=== PATIENT | female | born 1955 | race Caucasian/White ===

== ENCOUNTER → 2016-10-30 | Outpatient (CLI) | payer MEDICAID | LOC: FIMAGING 12:56 | DX: Z12.31 Encounter for screening mammogram for malignant neoplasm of breast (principal) | CPT/HCPCS: G0202 ==

== ENCOUNTER → 2016-11-13 | Outpatient (CLI) | payer MEDICAID | LOC: BMCIMAGING 09:29 | PROVIDERS: ATTEND Orthopaedic Surgery | DX: M25.561 Pain in right knee (principal); M17.11 Unilateral primary osteoarthritis, right knee; M25.761 Osteophyte, right knee ==

== ENCOUNTER → 2017-01-14 | Outpatient (CLI) | payer MEDICAID | LOC: FIMAGING 13:41 | PROVIDERS: ATTEND Orthopaedic Surgery | DX: Z01.818 Encounter for other preprocedural examination (principal); M17.11 Unilateral primary osteoarthritis, right knee ==

== ENCOUNTER 2017-01-20 06:01 | Inpatient (IN) | payer MEDICAID ==
[2017-01-01 16:57] LABS: % IMMATURE GRANULYOCYTES 0.2 % (0.0-1.1); ABSOLUTE IMMATURE GRANULOCYTES 0.01 10^3/uL (0.00-0.10); ADD DIFF? NO; ADD MORPH? NO; ADD SCAN? NO; ATYPICAL LYMPHOCYTE FLAG 0 (0-99); FRAGMENT RBC FLAG 0 (0-99); HEMOGLOBIN 15.2 g/dL (12.6-16.3); LEFT SHIFT FLG 0 (0-99); LIPEMIA HEMOLYSIS FLAG 90 (0-99); MEAN CELL HEMOGLOBIN 28.7 pg (27.9-34.1); MEAN CELL HEMOGLOBIN CONCENTR. 34.5 g/dL (32.4-36.7); MEAN CELL VOLUME 83.2 fL (81.5-99.8); MEAN PLATELET VOLUME 9.5 fL (8.7-11.7); PLATELET CLUMPS FLAG 0 (0-99); PLATELET COUNT 295 10^3/uL (150-400); RED BLOOD CELL COUNT 5.29 10^6/uL (4.18-5.33)
[2017-01-13] MEDS: HYDROmorphONE/DILAUDID 1 MG/ML SYR IVP PRN (10:13)
[~2017-01-20 06:01] MED LIST: ACETAMINOPHEN 325 MG TAB PO ONE; DEXAMETHASONE 4 MG/ML VIAL IVP ONE; FAMOTIDINE 20 MG TAB PO ONE
[2017-01-20] MEDS ORDERED: LR 1,000 ML IV ONE (06:07)
[2017-01-20] MEDS ORDERED: LIDOCAINE 1% 2 ML INJ ID PRN (06:07)
--- NOTE | 2017-01-20 06:29 | PDHPUP ---
History & Physical Update H&P update statement: This history and physical update is based on an assessment of the patient which was completed after admission or registration (within 24 hours), but prior to the surgery/procedure.
[2017-01-20] MEDS ORDERED: THROMBIN (BOVINE) 5,000 UNIT VIAL TP ONE (06:42)
[2017-01-20] MEDS ORDERED: ceFAZolin 1 GM/5 ML SYR ONE (06:43)
[2017-01-20] MEDS ORDERED: CALCIUM CHLORIDE 1 GM/10 ML INJ ONE ×2 (06:43→07:36)
--- NOTE | 2017-01-20 07:03 | PDANEPAE ---
ANE History of Present Illness R total knee replacement ANE Past Medical History - Cardiovascular History Hx Hypertension: No Hx Arrhythmias: No Hx Chest Pain: No Hx Coronary Artery / Peripheral Vascular Disease: No Hx CHF / Valvular Disease: No Hx Palpitations: No - Pulmonary History Hx COPD: No Hx Asthma/Reactive Airway Disease: No Hx Recent Upper Respiratory Infection: No Hx Oxygen in Use at Home: No Hx Sleep Apnea: Yes Sleep Apnea Screening Result - Last Documented: Positive Pulmonary History Comment: WHEEZING W/URI & ALLERGIES - ENVIRONMENTAL & CATS - Neurologic History Hx Cerebrovascular Accident: No Hx Seizures: No Hx Dementia: No - Endocrine History Hx Diabetes: No Endocrine History Comment: HYPOTHYROID - Renal History Hx Renal Disorders: No - Liver History Hx Hepatic Disorders: Yes Hepatic History Comment: CHOLECYSTECTOMY - Neurological & Psychiatric Hx Hx Neurological and Psychiatric Disorders: Yes Neurological / Psychiatric History Comment: DEPRESSION - Cancer History Hx Cancer: Yes Cancer History Comment: BASAL CELL LESIONS REMOVED - Congenital Disorder History Hx Congenital Disorders: No - GI History Hx Gastrointestinal Disorders: Yes Gastrointestinal History Comment: ACID REFLUX. HIATAL HERNIA - Other Health History Other Health History: ALLERGIC DERMATITIS - Chronic Pain History Chronic Pain: Yes (LALITHA KNEE PAIN) - Surgical History Prior Surgeries: APPENDECTOMY. URETHRAL DILATION. TUMOR LALITHA BREAST BENIGN. CHOLECYSTECTOMY. TONSILLECTOMY &ADENOIDECTOMY. KNEE LALITHA SCOPES ANE Review of Systems - Exercise capacity METS (RN): 4 METS ANE Patient History - Allergies Allergies/Adverse Reactions: cephalexin monohydrate [From Keflex] Allergy (Verified 05/26/09 15:58) doxycycline [Doxycycline] Allergy (Verified 05/26/09 15:59) - Home Medications Home Medications: Cyclobenzaprine [Flexeril 10 MG (*)] 10 mg PO DAILY PRN 12/20/16 [Last Taken 04/22] Diclofenac Sodium 1% [Voltaren Gel (*)] 1 isaac TP DAILY PRN 12/20/16 [Last Taken 01/13/17] Fluticasone Nasal [Flonase Nasal [place] (RX)] 1 sprays NASAL DAILY PRN 12/20/16 [ Last Taken 01/19/17] Herbals/Supplements -Info Only 1 ea PO DAILY 12/20/16 [Last Taken 01/13/17] Ibuprofen [Advil] 800 mg PO BID PRN 12/20/16 [Last Taken 01/13/17] LORazepam [Ativan (*)] 1 mg PO HS PRN 12/20/16 [Last Taken 01/13/17] Ospemifene [Osphena] 60 mg PO DAILY PRN 12/20/16 [Last Taken 01/13/17] Ranitidine HCl 150 mg PO BID 12/20/16 [Last Taken 01/20/17 00:00] - NPO status NPO Since - Liquids (Date): 01/19/17 NPO Since - Liquids (Time): 20:00 NPO Since - Solids (Date): 01/19/17 NPO Since - Solids (Time): 20:00 - Anes Hx Anes Hx: post operative nausea (This happened last in the s) - Smoking Hx Smoking Status: Never smoked Marijuana use: Yes - Family Anes Hx Family Hx Anesthesia Complications: NEG ANE Labs/Vital Signs - Labs Result Diagrams: 01/01/17 16:40 - Vital Signs Blood Pressure: 160/95 Heart Rate: 94 Respiratory Rate: 20 O2 Sat (%): 94 Height: 157.48 cm Weight: 104.326 kg ANE Physical Exam - Airway Neck exam: FROM Mallampati Score: Class 3 (short TMD) Mouth exam: normal dental/mouth exam - Pulmonary Pulmonary: clear to auscultation - Cardiovascular Cardiovascular: regular rate and rhythym - ASA Status ASA Status: III ANE Anesthesia Plan Anesthesia Plan: general endotracheal anesthesia Regional Anesthesia: single shot NB (Adductor canal block, possible inability to perform discussed)
[2017-01-20] MEDS ORDERED: MIDAZOLAM 2 MG/2 ML VIAL IVP ONE (07:05)
[2017-01-20] MEDS ORDERED: PROPOFOL/EMULSION 500 MG/50 ML BOTTLE IV ONE ×2 (07:09→08:27)
[2017-01-20] MEDS ORDERED: fentaNYL 100 MCG/2 ML INJ ONE ×6 (07:12→10:15)
[2017-01-20] MEDS ORDERED: DEXAMETHASONE 4 MG/ML VIAL ONE ×2 (07:13)
[2017-01-20] MEDS ORDERED: ROCURONIUM 50 MG/5 ML VIAL ONE ×2 (07:13→08:20)
[2017-01-20] MEDS ORDERED: KETAMINE 100 MG/10 ML SYR ONE (07:16)
[2017-01-20] MEDS ORDERED: RANITIDINE 50 MG/2 ML VIAL ONE (07:56)
[2017-01-20] MEDS ORDERED: VANCOMYCIN 1.5 GM in D5W 250 ML IV ONE (08:00)
[2017-01-20] MEDS ORDERED: VANCOMYCIN PHARMACY TO DOSE MISC ONE (08:00)
[2017-01-20] MEDS ORDERED: TRANEXAMIC ACID 1,000 MG in NS 100 ML IV ONE (08:00)
[2017-01-20] MEDS ORDERED: LIDOCAINE 1% 5 ML, BUPIVACAINE 0.5% 5 ML, morphINE PF 5 MG in SYRINGE 0 ML IU ONE (08:00)
[2017-01-20] MEDS ORDERED: ROPI/epiNEPH/KETOROLAC/morphINE JOINT COCKTAIL IU ONE (08:00)
[2017-01-20] MEDS ORDERED: ENALAPRILAT DIHYDRATE 1.25 MG/ML VIAL ONE ×2 (08:13)
[2017-01-20] MEDS ORDERED: clonIDINE 1 MG/10 ML VIAL EP ONE (08:20)
[2017-01-20] MEDS ORDERED: ROPIVACAINE HCL 150 MG/30 ML INJ ONE (08:20)
[2017-01-20] MEDS ORDERED: ONDANSETRON 4 MG/2 ML VIAL ONE (08:51)
[2017-01-20] MEDS ORDERED: LIDOCAINE 2% 5 ML SDV ONE (08:59)
[2017-01-20] MEDS ORDERED: GLYCOPYRROLATE 0.2 MG/1 ML VIAL ONE (09:02)
[2017-01-20] MEDS ORDERED: NEOSTIGMINE METHYLSULFATE 5 MG/5 ML SYR ONE (09:02)
[2017-01-20] MEDS ORDERED: PROMETHAZINE HCL 25 MG SUPPR PR PRN (09:13)
[2017-01-20] MEDS ORDERED: CYCLOBENZAPRINE 10 MG TAB PO PRN (09:13)
[2017-01-20] MEDS ORDERED: LACTULOSE 20 GM/30 ML UDCUP PO PRN (09:13)
[2017-01-20] MEDS ORDERED: DIAZEPAM 5 MG TAB PO PRN (09:13)
[2017-01-20] MEDS ORDERED: ONDANSETRON 4 MG/2 ML VIAL IVP PRN (09:13)
[2017-01-20] MEDS ORDERED: POLYETHYLENE GLYCOL 3350 17 GM PKT PO PRN (09:13)
[2017-01-20] MEDS ORDERED: BISACODYL 10 MG SUPP PR PRN (09:13)
[2017-01-20] MEDS ORDERED: MAGNESIUM HYDROXIDE 30 ML UDCUP PO PRN (09:13)
[2017-01-20] MEDS ORDERED: DIPHENOXYLATE/ATROPINE LOMOTIL 1 TAB PO PRN (09:13)
[2017-01-20] MEDS ORDERED: METOCLOPRAMIDE 10 MG/2 ML VIAL IVP PRN (09:13)
[2017-01-20] MEDS ORDERED: ONDANSETRON DISINTEGRATING 4 MG TAB PO PRN (09:13)
[2017-01-20] MEDS ORDERED: diphenhydrAMINE 25 MG CAP PO PRN (09:13)
[2017-01-20] MEDS ORDERED: PROMETHAZINE HCL 25 MG/ML INJ IVP PRN (09:13)
[2017-01-20] MEDS ORDERED: PHARMACY PAIN CONSULT 1 EA MISC PRN (09:13)
[2017-01-20] MEDS ORDERED: TEMAZEPAM 15 MG CAP PO PRN (09:13)
[2017-01-20] MEDS ORDERED: traMADol 50 MG TAB PO PRN (09:13)
[2017-01-20] MEDS ORDERED: LORazepam 1 MG TAB PO PRN (09:14)
[2017-01-20] MEDS ORDERED: Ospemifene [Osphena] 60 MG PO PRN (09:14)
[2017-01-20] MEDS ORDERED: LR 1,000 ML IV SCH (09:30)
[2017-01-20] MEDS: fentaNYL 100 MCG/2 ML INJ IVP PRN ×4 (09:55→11:08)
[2017-01-20] MEDS ORDERED: NALOXONE HCL 0.4 MG/ML INJ IVP PRN (09:59)
--- NOTE | 2017-01-20 10:02 | POSTANESTH ---
Post Anesthetic Evaluation Cardiovascular Status: Similar to Pre-Op Cond Respiratory Status: Similar to Pre-op Cond. Level of Consciousness/Mental Status: Can Participate in Eval Pain Control: Inadeq, Add Tx Required Nausea/Vomiting Control: Adequate, Prn Tx Ordered Complications Possibly Related to Anesthesia: None Noted
[2017-01-20] MEDS: HYDROmorphONE/DILAUDID 1 MG/ML SYR IVP PRN ×5 (10:03→11:15)
[2017-01-20] MEDS ORDERED: HYDROmorphONE/DILAUDID 1 MG/ML SYR ONE (10:27)
[2017-01-20] MEDS: ACETAMINOPHEN 325 MG TAB PO SCH ×3 (12:49→23:38)
[2017-01-20] MEDS: oxyCODONE IR 5 MG TAB PO PRN ×3 (12:49→23:38)
[2017-01-20] MEDS: ASPIRIN 325 MG TAB PO SCH (20:09)
[2017-01-20] MEDS: FAMOTIDINE 20 MG TAB PO SCH (20:09)
[2017-01-20] MEDS: SENNOSIDES/DOCUSATE SODIUM TAB PO SCH (20:09)
[2017-01-20] MEDS ORDERED: NON-FORMULARY NEW DRUG (Ranitidine Hcl [Ranitidine Hcl] 150 MG) PO SCH (21:00)
[2017-01-21 04:47] VITALS: RESP 16
[2017-01-21 05:17] LABS: HEMOGLOBIN 11.7 g/dL (12.6-16.3)
[2017-01-21] MEDS: ACETAMINOPHEN 325 MG TAB PO SCH ×2 (05:22→12:26)
[2017-01-21] MEDS: oxyCODONE IR 5 MG TAB PO PRN ×2 (07:05→12:26)
--- NOTE | 2017-01-21 07:18 | PDIAF ---
- Diagnosis Diagnosis: right knee djd Code Status: Full Code - Medication Management Discharge Medications: Medications to Continue on Transfer Cyclobenzaprine [Flexeril 10 MG (*)] 10 mg PO DAILY PRN 12/20/16 [Last Taken 04/22] Diclofenac Sodium 1% [Voltaren Gel (*)] 1 isaac TP DAILY PRN 12/20/16 [Last Taken 01/13/17] Fluticasone Nasal [Flonase Nasal [place]] 1 sprays NASAL DAILY PRN 12/20/16 [Last Taken 01/19/17] Herbals/Supplements -Info Only 1 ea PO DAILY 12/20/16 [Last Taken 01/13/17] Ibuprofen [Advil] 800 mg PO BID PRN 12/20/16 [Last Taken 01/13/17] LORazepam [Ativan (*)] 1 mg PO HS PRN 12/20/16 [Last Taken 01/13/17] Ospemifene [Osphena] 60 mg PO DAILY PRN 12/20/16 [Last Taken 01/13/17] Ranitidine HCl 150 mg PO BID 12/20/16 [Last Taken 01/20/17 00:00] Aspirin [Aspirin 325 mg (*)] 325 mg PO DAILY #0 tab 01/21/17 [Last Taken Unknown ] oxyCODONE IR [Oxycodone Ir (*)] 5 - 10 mg PO Q3HRS PRN #90 tab 01/21/17 [Last Taken Unknown] Discharge Medications: Refer to the Discharge Home Medication list for PRN reason. - Orders Services needed: Physical Therapy Diet Recommendation: no restrictions on diet Diet Texture: Regular Texture Diet Activity/Weight Bearing Restrictions: wbat. rom as tolerated. daily dressing changes. may shower without bandage, no soaking or immersion. aspirin 325 mg po daily. f/u at two weeks. seek attn for increasing pain, cp, sob, other focal complaints - Follow Up Care Current Providers and Referrals: Ramona Green MD [Primary Care Provider] -
[2017-01-21 08:06] VITALS: BP 122/56; PULSE 69; TEMP 98.5; O2SAT 96
[2017-01-21] MEDS: FAMOTIDINE 20 MG TAB PO SCH (08:58)
[2017-01-21] MEDS: SENNOSIDES/DOCUSATE SODIUM TAB PO SCH (08:58)
[2017-01-21] MEDS: ASPIRIN 325 MG TAB PO SCH (08:58)
--- NOTE | 2017-01-21 16:52 | GDS ---
[f rep st] DISCHARGE SUMMARY ADMIT DIAGNOSIS: Right knee degenerative joint disease. DISCHARGE DIAGNOSIS: Right knee degenerative joint disease. PROCEDURE: Right total knee arthroplasty. OPERATIVE INDICATIONS: The patient is a 61-year-old woman with end-stage arthritis to her right kne e. Clinical and radiographic features are consistent with this. She has failed all attempts at con servative management. I have, therefore, recommended total knee replacement. She understood the ri sks, benefits, alternatives, and wished to proceed. Written consent was signed and [facility]. HOSPITAL COURSE: The patient was admitted to the hospital floor overnight after uncomplicated total knee arthroplasty. She tolerated the procedure well. At the time of discharge, she is tolerating an oral diet. Her pain is well controlled on oral medicines. Her dressing is clean, dry, and intac t. She has negative Lynn's bilaterally. She has been cleared by Physical Therapy. DISCHARGE ACTIVITY: She is weightbearing as tolerated. Range of motion as tolerated. Daily dressi ng changes. May shower without the bandage. No soaking or immersion. FOLLOWUP: 2 weeks. Seek attention for increasing redness, swelling, drainage, discharge, or other focal complaint. DISCHARGE MEDICATIONS: Oxycodone 5 mg 1-2 every 6 hours p.r.n. pain. Aspirin 325 mg p.o. daily for 6 weeks. /[id number]/MODL
== END 2017-01-21 12:35 | disposition home health service (06) | DRG 470 ==
LOC: F3N 06:01
PROVIDERS: ADMIT Orthopaedic Surgery; ATTEND Orthopaedic Surgery
PROC: 8E0Y0CZ Robotic Assisted Procedure of Lower Extremity, Open Approach (ICD-10-PCS; principal; 2017-01-20 07:15)
PROC: 0SRC0JZ Replacement of Right Knee Joint with Synthetic Substitute, Open Approach (ICD-10-PCS; principal; 2017-01-20 07:15)
PROC: 3E0U3GC Introduction of Other Therapeutic Substance into Joints, Percutaneous Approach (ICD-10-PCS; principal; 2017-01-20 07:15)
PROC: 6A550Z2 Pheresis of Platelets, Single (ICD-10-PCS; principal; 2017-01-20 07:15)
DX: M17.11 Unilateral primary osteoarthritis, right knee (principal); G47.33 Obstructive sleep apnea (adult) (pediatric); E03.9 Hypothyroidism, unspecified; K21.9 Gastro-esophageal reflux disease without esophagitis; K44.9 Diaphragmatic hernia without obstruction or gangrene
CPT/HCPCS: 97116-GP; 97161-GP; 97165-GO; 97530-GP; C1713; J0171; J0735; J1100; J1170; J1885; J2250; J2274; J2405; J2550; J2704; J2710; J2780; J2795; J3010; J3370

== ENCOUNTER → 2017-03-03 | Outpatient (CLI) | payer MEDICAID | LOC: BMCIMAGING 10:08 | PROVIDERS: ATTEND Physician Assistant | DX: Z47.1 Aftercare following joint replacement surgery (principal); Z96.651 Presence of right artificial knee joint ==

== ENCOUNTER → 2017-04-07 | Outpatient (CLI) | payer MEDICAID | LOC: BMCIMAGING 10:09 | PROVIDERS: ATTEND Physician Assistant | DX: Z47.1 Aftercare following joint replacement surgery (principal); Z96.651 Presence of right artificial knee joint ==

== ENCOUNTER → 2017-05-23 | Outpatient (CLI) | payer MEDICAID | LOC: BMCIMAGING 13:28 | PROVIDERS: ATTEND Family Medicine | DX: R60.0 Localized edema (principal); R06.09 Other forms of dyspnea; R05 Cough ==

== ENCOUNTER → 2017-07-10 | Outpatient (CLI) | payer MEDICAID | LOC: BMCIMAGING 10:29 | PROVIDERS: ATTEND Physician Assistant | DX: Z47.1 Aftercare following joint replacement surgery (principal); Z96.651 Presence of right artificial knee joint ==

== ENCOUNTER → 2018-01-29 | Outpatient (CLI) | payer MEDICAID | LOC: BMCIMAGING 16:18 | PROVIDERS: ATTEND Orthopaedic Surgery Hand Surgery | DX: M25.811 Other specified joint disorders, right shoulder (principal) ==

== ENCOUNTER → 2018-06-15 | Outpatient (CLI) | payer MEDICAID | LOC: FIMAGING 12:31 | PROVIDERS: ATTEND Orthopaedic Surgery Hand Surgery | DX: R22.31 Localized swelling, mass and lump, right upper limb (principal) ==

== ENCOUNTER → 2018-09-23 | Outpatient (CLI) | payer MEDICAID | LOC: BMCIMAGING 13:13 | PROVIDERS: ATTEND Family Medicine | DX: M54.31 Sciatica, right side (principal) ==